=== PATIENT | male | born 1990 | race Caucasian/White ===

== ENCOUNTER 2018-08-07 20:54 | Emergency (ER) | payer SELFPAY ==
[2018-08-07] MEDS ORDERED: LIDOCAINE 1% (MDV) 10 ML INJ INJ (23:19)
[2018-08-07] MEDS: DIPHTH/TET/ACEL PERTUSS (ADULT) 0.5 ML VIAL IM* (23:34)
[2018-08-07] MEDS: LIDOCAINE 1% (MDV) 20 ML INJ INJ (23:35)
== END 2018-08-08 01:50 | disposition home or self-care (01) ==
LOC: FTE 20:54
DX: S01.81XA Laceration without foreign body of other part of head, initial encounter (principal); W21.211A Struck by field hockey stick, initial encounter; Y92.9 Unspecified place or not applicable; Z23 Encounter for immunization
CPT/HCPCS: 12013; 90471; 90715; 99283-25